=== PATIENT | male | born 1960 | race Caucasian/White ===

== ENCOUNTER 2023-06-01 12:27 | Outpatient (CLI) | payer BC, SELFPAY ==
--- NOTE | 2023-06-01 12:15 | RT.EKG_ITS ---
APPROVED REPORT Exam: Resting ECG Reason for Exam: baseline Patient Location: O HR:70 bpm ECG Measurements Heart Rate 70 AXIS FL 201 P 52 QRSd 92 QRS 19 QT 381 T 132 QTc 412 Conclusion Sinus rhythm...normal P axis, V-rate 50- 99 Probable left atrial enlargement...P >50mS, <-0.10mV V1 Repol abnrm suggests ischemia, anterolateral...ST dep, T neg, I aVL V2-V6 I have reviewed and interpreted ECG and agree with software generated interpretation.
== END 2023-06-01 12:28 | disposition home or self-care (01) ==
LOC: DI.CARD 12:28
PROVIDERS: PCP Nurse Practitioner Family; Visit Provider Internal Medicine Interventional Cardiology
DX: I48.91 Unspecified atrial fibrillation (principal)
CPT/HCPCS: 93010

== ENCOUNTER 2024-03-31 09:53 | Outpatient (CLI) | payer BC, SELFPAY ==
[2024-03-31 12:17] LABS: Abs Immature Grans 0.05 10^3/uL (0.0-0.06); Absolute Eosinophil Count 0.27 10^3/uL (0.0-0.7); Absolute Lymphocyte Count 2.26 10^3/uL (1.2-3.4); Absolute Monocyte Count 0.59 10^3/uL (0.1-0.8); Absolute Neutrophil Count 6.25 10^3/uL (1.2-6.7); Basophils % 1.1 %; Eosinophils % 2.8 %; HCT 44.7 % (40.0-50.0); HGB 14.5 g/dL (13.5-17.5); Immature Grans % 0.5 %; Lymphocytes % 23.7 %; MCH 30.3 pg (27.0-33.0); MCHC 32.4 % (32.0-36.0); MCV 93 fL (80-95); MPV 9.9 fL (8.0-11.0); Monocytes % 6.2 %; Neutrophils % 65.7 %; Platelet Count 252 10^3/uL (130-400); RBC 4.79 10^6/uL (4.36-5.78); RDW 12.3 % (11.8-14.1); RDW-SD 42.5 fL; WBC 9.52 10^3/uL (4.4-10.8)
[2024-03-31 12:21] LABS: ESR 21 mm/hr (0-20)
[2024-03-31 12:28] LABS: ALT 86 U/L (16-63); AST 40 U/L (15-37); Albumin 3.7 g/dL (3.4-5.0); Alkaline Phosphatase 68 U/L (46-116); Anion Gap 8.5 mmol/L (3-11); BUN 20 mg/dL (7-18); Bilirubin, Total 0.39 mg/dL (0.2-1.0); CO2 29.5 mmol/L (21.0-32.0); CREATININE 0.9 mg/dL (0.70-1.30); Calcium 9.2 mg/dL (8.5-10.1); Calculated LDL 65 mg/dL (<100); Chloride 105 mmol/L (98-107); Cholesterol 146 mg/dL (<200); Estimated GFR 95.97 (mL/min/1.73m2); Glucose 103 mg/dL (74-106); HDL Cholesterol 58 mg/dL (40-60); Potassium 4.4 mmol/L (3.5-5.1); Sodium 143 mmol/L (136-145); Total Protein 7.9 g/dL (6.4-8.2); Triglyceride 118 mg/dL (<150)
[2024-03-31 12:43] LABS: C-Reactive Protein < 0.50 mg/dL (<or=0.5)
[2024-03-31 19:35] LABS: HIV-1/2 Ag & Ab Screen Negative (Negative)
[2024-03-31 19:42] LABS: Hepatitis C Ab w Rflx HCV PCR Negative (Negative)
[2024-04-01 11:33] LABS: Lyme Ab w Rflx to Lyme Confirm Negative (Negative)
[2024-04-03 14:00] LABS: Anaplasma phagocytophilum Negative (Negative); B. miyamotoi PCR Negative (Negative); Babesia divergens/MO-1 Negative (Negative); Babesia duncani Negative (Negative); Babesia microti Negative (Negative); Ehrlichia chaffeensis Negative (Negative); Ehrlichia ewingii/canis Negative (Negative); Ehrlichia muris eauclairensis Negative (Negative)
== END 2024-03-31 09:54 | disposition home or self-care (01) ==
LOC: LOS 09:53
PROVIDERS: PCP Nurse Practitioner Family; Referring Provider Nurse Practitioner Family; Visit Provider Nurse Practitioner Family
DX: Z11.4 Encounter for screening for human immunodeficiency virus [HIV]; E78.5 Hyperlipidemia, unspecified; Z11.59 Encounter for screening for other viral diseases
CPT/HCPCS: 36415; 80053; 80061; 85652; 86803; 87389; 87798; 85025; 86140; 86618